=== PATIENT | female | born 1985 | race Caucasian/White ===

== ENCOUNTER 2023-03-23 21:14 | Emergency (ER) | payer OTHER ==
[~2023-03-23] VITALS: Ht 162.6 cm; Wt 74.4 kg
[~2023-03-23 21:14] MED LIST: ALBU0.0952 IH
[2023-03-23 21:33] VITALS: BP 113/83; PULSE 87; RESP 18; TEMP 98.3; O2SAT 97
[2023-03-23 22:32] LABS: APPEARANCE,URINE CLEAR (CLEAR); BILIRUBIN,URINE NEGATIVE (NEGATIVE); BLOOD, URINE NEGATIVE (NEGATIVE); COLOR,URINE YELLOW (YELLOW); LEUKOCYTE ESTERASE ,URINE NEGATIVE (NEGATIVE); NITRITE, URINE NEGATIVE (NEGATIVE); PH,URINE 6.5 (5.0-9.0); PROTEIN,URINE NEGATIVE (NEGATIVE); UGLUCOSE NEGATIVE (NEGATIVE); UROBILINOGEN,URINE 0.2 EU/dL (0.2 - 1)
[2023-03-23] MEDS ORDERED: KEN.1O TP (23:55)
== END 2023-03-24 00:07 | disposition home or self-care (01) ==
LOC: MED 21:14
DX: L30.9 Dermatitis, unspecified (principal); R19.09 Other intra-abdominal and pelvic swelling, mass and lump; F17.210 Nicotine dependence, cigarettes, uncomplicated; J45.909 Unspecified asthma, uncomplicated; Z71.6 Tobacco abuse counseling; Z79.899 Other long term (current) drug therapy
CPT/HCPCS: 81003; 81025; 99283

== ENCOUNTER 2023-11-03 14:43 | Emergency (ER) | payer OTHER ==
[~2023-11-03] VITALS: Ht 162.6 cm; Wt 70.3 kg
[~2023-11-03 14:43] MED LIST changes: +KEN.1O TP
[2023-11-03 14:51] VITALS: BP 140/80; PULSE 89; RESP 16; TEMP 97.3; O2SAT 99
[2023-11-03] MEDS: ALBUTEROL SULFATE/IPRATROPIU 3 ML SOL IH ONE (14:59)
[2023-11-03] MEDS ORDERED: ALBUTEROL SULFATE/IPRATROPIU 3 ML SOL IH ONE (14:59)
[2023-11-03 15:00] VITALS: PULSE 90; RESP 14; O2SAT 97
[2023-11-03] MEDS ORDERED: ALBU0.0912 IH (16:12)
[2023-11-03 16:20] VITALS: BP 104/65; PULSE 80; RESP 16; TEMP 97.3; O2SAT 98
== END 2023-11-03 16:20 | disposition home or self-care (01) ==
LOC: MED 14:43
DX: J45.901 Unspecified asthma with (acute) exacerbation (principal); F17.200 Nicotine dependence, unspecified, uncomplicated; Z71.6 Tobacco abuse counseling; Z79.899 Other long term (current) drug therapy
CPT/HCPCS: 94640; 99283